=== PATIENT | male | born 1945 | race Caucasian/White ===

== ENCOUNTER 2017-03-24 13:27 | Inpatient (IN) | payer MEDICARE, MEDICAID ==
[~2017-03-24 13:27] MED LIST: ALPRAZOLAM0.25 M3 PO; ASMANEX0; ASPIR 8181 M1 PO; ASPIR 8181 MG PO; ASPIRIN LOW STR81 MG; ASPIRIN1 GM MC; ASPIRIN81 MG; AUGMENTIN 875-11 TAB PO; BIPAP; BROVANA15 MCG/2 M IH; CLONAZEPAM0.5 MG; COMBIVENT RESPIM4 G1 INH; COMBIVENT1 PUFF INH; CULTURELLE1 CA1 PO; DIFLUCAN100 MG PO; DUONEB 2.5-0.5 M3 ML; FLUCONAZOLE100 M2 PO; FUROSEMIDE40 M2 PO; IBUPROFEN400 MG PO; IPRAT-ALBUT 0.5-3 ML INH; IPRATROPIUM0.2 MG/ML IH; LASIX40 MG PO; LEVAQUIN750 MG; LEVAQUIN750 MG PO; METFORMIN HCL500 M3 PO; MIRALAX17 G1 PO; MUCINEX1200 MG/BO PO; MUCINEX600 M1 PO; OMEPRAZOLE20 M2 PO; OMEPRAZOLE20 M3 PO; OXYGEN; POLYETHYLENE GL14 EA; POLYETHYLENE GL17 G1 PO; POLYETHYLENE GLYCOL; POTASSIUM CHLO20 ME3 PO; PREDNISONE10 M1; PREDNISONE10 MG; PREDNISONE10 MG PO; PRILOSEC20 MG; RANITIDINE HCL300 MG; REQUIP1 M1 PO; REQUIP2 MG PO; ROPINIROLE HCL1 MG PO; SIMVASTATIN40 M1 PO; SIMVASTATIN40 MG PO; SPIRIVA18 MCG; SPIRIVA18 MCG IH; STERAPRED10 MG/DOSE PO; SYMBICORT 160-1 PUFF INH; SYMBICORT 160-4.6 GM IH; VITAMIN D32000 UNI3 PO; XANAX0.25 MG PO; ZITHROMAX250 MG PO; ZITHROMAX500 M2
[2017-03-24 13:50] LABS: ARTERIAL BLD GAS O2 SATURATION 96 % (95-98); ARTERIAL PO2 86 mmHg (70-100); BICARBONATE 41 mmol/L (21-28); BLOOD GAS BASE EXCESS 13 mM/L (-/+3); PH 7.35 Units (7.35-7.45)
[2017-03-24 13:52] LABS: ABG CO2 ARTERIAL 43 mmol/L (21-27); ARTERIAL BLOOD GAS PCO2 75 mmHg (32-45)
[2017-03-24 14:08] LABS: BASO % 0.1 % (0-2); EOS % 0.2 % (0-7); HCT-HEMATOCRIT 39.2 % (36.0-53.5); HGB-HEMOGLOBIN 11.9 gm/dl (13.5-17.0); IMMATURE GRANULOCYTES ABSOLUTE 0.04 tho/cmm (0-0.03); IMMATURE GRANULOCYTES PERCENT 0.3 % (0-0.3); LYMPH % 8.4 % (20-45); MCH (MEAN CORPUSCULAR HGB) 28.2 pg (28.0-32.0); MCHC MEAN CORPUSCULAR HGB CONC 30.4 % (32.0-36.0); MCV (MEAN CELL VOLUME) 92.9 fl (82.0-96.0); MEAN PLATELET VOLUME 8.4 cmc (9.4-12.4); MONO % 7.4 % (0-12); MONOCYTE ABSOLUTE COUNT 0.9 tho/cmm (0.0-1.2); NEUTROPHIL ABSOLUTE COUNT 10.2 tho/cmm (1.6-8.0); NEUTROPHIL-AUTOMATED 10.2 tho/cmm (1.6-8.0); NEUTROPHILS % 83.6 % (40-80); PLATELET COUNT 372 tho/cmm (150-450); RED BLOOD COUNT 4.22 mil/cmm (4.40-5.70); RED CELL DISTRIBUTION WIDTH 13.4 % (12.4-16.4); WHITE BLOOD COUNT 12.2 tho/cmm (4.0-10.0)
[2017-03-24 14:28] LABS: ALB/GLOB RATIO 0.5 (0.8-2.0); ALBUMIN 2.8 g/dl (3.5-5.0); ALKALINE PHOSPHATASE 81 U/L (33-138); ALT/SGPT 14 U/L (12-78); ANION GAP 7 mmol/L (0-20); AST/SGOT 9 U/L (10-40); BILIRUBIN,TOTAL 0.4 mg/dl (0.0-1.5); BLOOD UREA NITROGEN 16 mg/dl (6-24); CALCIUM 8.9 mg/dl (8.5-10.5); CHLORIDE 93 mmol/l (96-110); GLUCOSE 192 mg/dL (70-110); POTASSIUM 4.1 mmol/L (3.7-5.1); SODIUM 138 mmol/L (135-145); eGFR VALUE FOR BLACK >90 mL/Min
[2017-03-24 14:38] LABS: CARBON DIOXIDE-VENOUS 42 mmol/L (22-32); CREATININE 0.61 mg/dl (0.60-1.30)
[2017-03-24 14:41] LABS: PROCALCITONIN 0.14 ng/ml (0.05-0.09)
[2017-03-24] MEDS ORDERED: PREDNISONE5 M1 PO (14:59)
[2017-03-24] MEDS ORDERED: [UNRECOGNIZED DRUG - SUPPLY] INH (15:00)
--- NOTE | 2017-03-24 21:50 | NUR ---
VIRTUAL CARE NOTE: ASSESSMENT DEFERRED. PT. SLEEPING.
--- NOTE | 2017-03-25 14:15 | NUR ---
Pt would like to visit with [facility]. Reports he called [facility] this morning. [facility] called with the hospice referral and info faxed to them. They are aware pt is on trilogy and requests Dr Broussard/ Kely SINGLETON as his hospice physician.
[2017-03-27 05:47] LABS: HGB-HEMOGLOBIN 10.5 gm/dl (13.5-17.0); PLATELET COUNT 478 tho/cmm (150-450)
== END 2017-03-27 11:45 | disposition hospice, home (50) | DRG 190 ==
LOC: EDMED 13:27 → EMR2 15:52 → 5WD 17:18
PROVIDERS: Emergency Medicine; ADMIT Hospitalist
PROC: 5A09357 Assistance with Respiratory Ventilation, Less than 24 Consecutive Hours, Continuous Positive Airway Pressure (ICD-10-PCS; principal; 2017-03-24)
DX: J44.0 Chronic obstructive pulmonary disease with (acute) lower respiratory infection (principal); J18.9 Pneumonia, unspecified organism; J96.21 Acute and chronic respiratory failure with hypoxia; J96.22 Acute and chronic respiratory failure with hypercapnia; J44.1 Chronic obstructive pulmonary disease with (acute) exacerbation; Z51.5 Encounter for palliative care; E11.65 Type 2 diabetes mellitus with hyperglycemia; Z79.84 Long term (current) use of oral hypoglycemic drugs; Z79.82 Long term (current) use of aspirin; Z99.81 Dependence on supplemental oxygen; Z87.891 Personal history of nicotine dependence; G47.33 Obstructive sleep apnea (adult) (pediatric); K21.9 Gastro-esophageal reflux disease without esophagitis; E78.5 Hyperlipidemia, unspecified; Z88.8 Allergy status to other drugs, medicaments and biological substances; E55.9 Vitamin D deficiency, unspecified; Z66 Do not resuscitate; F41.9 Anxiety disorder, unspecified; F32.9 Major depressive disorder, single episode, unspecified; T38.0X5A Adverse effect of glucocorticoids and synthetic analogues, initial encounter
CPT/HCPCS: J0456; J0696; J1650; J1815; J2930; J7030; J7050; Q9967